=== PATIENT | female | born 1975 | race Two or more races ===

== ENCOUNTER 2017-08-19 11:12 | Inpatient (IN) | payer MEDICAID ==
[~2017-08-19] VITALS: Ht 162.6 cm; Wt 80.1 kg
[2017-08-19] MEDS ORDERED: ACETAMINOPHEN 325 MG TAB PO ONE (11:30)
[2017-08-19 12:11] LABS: Urine Bacteria NONE SEEN /hpf (None Seen); Urine Blood 2+ /uL (Negative); Urine Specific Gravity 1.025 (1.001-1.035); Urine WBC 10 /hpf (0 - 5)
[2017-08-19 13:00] LABS: Basophils # (auto) 0.1 uL; Basophils % (auto) 0.4 % (0.0-2.0); Eosinophils # (auto) 0 uL; Hematocrit 39.7 % (36.0-46.0); Lymphocytes # (auto) 0.7 uL; Lymphocytes % (auto) 3.8 % (10.0-50.0); Mean Corpuscular Hemoglobin 27.8 pg (28.0-32.0); Mean Corpuscular Hgb Conc. 32.8 g/dL (32.0-36.0); Mean Corpuscular Volume 84.8 fL (80.0-100.0); Monocytes # (auto) 1.5 uL; Monocytes % (auto) 8.5 % (0.0-12.0); Neutrophils # (auto) 15.9 uL; Neutrophils % (auto) 87.3 % (37.0-80.0); Nucleated Red Blood Cells % 0.1 %; Red Blood Cells 4.68 10^6/uL (4.0-5.20); Red Cell Distribution Width 16.7 % (11.8-14.3); White Blood Cell 18.2 10^3/uL (4.4-10.8)
[2017-08-19 13:13] LABS: Platelet Count (auto) 137 10^3/uL (140-450)
[2017-08-19 13:32] LABS: Albumin 2.3 g/dL (3.4-5.0); BUN/Creatinine Ratio 10.8; Bilirubin, Total 1.2 mg/dL (0.2-1.0); Calcium 8.3 mg/dL (8.5-10.1); Magnesium 1.8 mg/dL (1.6-2.6); Potassium 3.3 mmol/L (3.5-5.1); Total Protein 6.2 g/dL (6.4-8.2)
[2017-08-19] MEDS ORDERED: metroNIDAZOLE 500MG/100ML 100 ML IV ONE (13:45)
[2017-08-19] MEDS ORDERED: LEVOFLOXACIN 500MG 100 ML IV ONE (14:15)
[2017-08-19] MEDS: D5W/SOD CHL 0.9%/KCL 40MEQ 1,000 ML IV SCH (14:15)
[2017-08-19] MEDS ORDERED: PANTOPRAZOLE 40 MG/10 ML VIAL IV ONE (14:15)
[2017-08-19] MEDS ORDERED: ONDANSETRON HCL 4 MG/2 ML VIAL IV PRN (14:15)
[2017-08-19 15:20] LABS: INR 1.07 (0.9-1.15); Partial Thromboplastin Time 37.3 sec (23.78-33.04); Prothrombin Time 11.4 sec (9.27-12.13)
[2017-08-19 15:28] VITALS: BP 105/62
[2017-08-19] MEDS: HYDROmorphone HCL 2 MG/ML VL IV PRN (15:39)
[2017-08-19 16:13] VITALS: BP 105/62
[2017-08-19 17:09] VITALS: BP 106/58
[2017-08-19] MEDS: HYDROcodone-ACET 5/325MG TAB PO PRN (21:11)
[2017-08-19] MEDS: metroNIDAZOLE 500MG/100ML 100 ML IV SCH (21:55)
[2017-08-19] MEDS: ACETAMINOPHEN 500 MG TAB PO PRN (21:56)
[2017-08-19 22:00] VITALS: BP 98/54
[2017-08-20 04:57] VITALS: BP 91/59
[2017-08-20] MEDS: D5W/SOD CHL 0.9%/KCL 40MEQ 1,000 ML IV SCH ×3 (06:03→20:15)
[2017-08-20] MEDS: metroNIDAZOLE 500MG/100ML 100 ML IV SCH ×3 (06:03→22:26)
[2017-08-20 06:05] LABS: Basophils # (auto) 0 uL; Basophils % (auto) 0.2 % (0.0-2.0); Eosinophils # (auto) 0 uL; Eosinophils % (auto) 0.2 % (0.0-7.0); Lymphocytes # (auto) 0.8 uL; Mean Corpuscular Hemoglobin 28.6 pg (28.0-32.0); Mean Corpuscular Hgb Conc. 33.4 g/dL (32.0-36.0); Mean Corpuscular Volume 85.6 fL (80.0-100.0); Monocytes # (auto) 1.4 uL; Monocytes % (auto) 11.8 % (0.0-12.0); Neutrophils # (auto) 9.5 uL; Neutrophils % (auto) 80.8 % (37.0-80.0); Platelet Count (auto) 127 10^3/uL (140-450); Red Cell Distribution Width 16.8 % (11.8-14.3); White Blood Cell 11.8 10^3/uL (4.4-10.8)
[2017-08-20 06:08] LABS: Partial Thromboplastin Time 36.2 sec (23.78-33.04); Prothrombin Time 10.7 sec (9.27-12.13)
[2017-08-20 06:17] LABS: Potassium 3.4 mmol/L (3.5-5.1)
[2017-08-20 06:23] LABS: Albumin 1.9 g/dL (3.4-5.0); BUN/Creatinine Ratio 12.1; Calcium 7.7 mg/dL (8.5-10.1)
[2017-08-20 06:27] LABS: Bilirubin, Total 0.8 mg/dL (0.2-1.0); Total Protein 5.6 g/dL (6.4-8.2)
[2017-08-20] MEDS: HYDROmorphone HCL 2 MG/ML VL IV PRN (07:53)
[2017-08-20 08:44] VITALS: BP 106/58
[2017-08-20] MEDS ORDERED: SUCCINYLCHOLINE CHLORIDE 20 MG/ML 10ML VIAL IV ONE (09:09)
[2017-08-20] MEDS: PANTOPRAZOLE 40 MG/10 ML VIAL IV SCH (09:10)
[2017-08-20] MEDS: LEVOFLOXACIN 500MG 100 ML IV SCH (09:11)
[2017-08-20] MEDS ORDERED: PROPOFOL 10 MG/ML 20 ML IV ONE (09:36)
[2017-08-20] MEDS ORDERED: LIDOCAINE HCL 100 MG/5ML (2%) SYRG INJ IV ONE (09:36)
[2017-08-20] MEDS ORDERED: MIDAZOLAM HCL 1MG/1ML-2 ML VIAL ONE (09:36)
[2017-08-20] MEDS ORDERED: POVIDONE IODINE 10 % TOPICAL OINT 30GM TOP ONE (10:28)
[2017-08-20] MEDS ORDERED: ceFAZolin 1GM VL ONE (10:32)
[2017-08-20] MEDS ORDERED: METOCLOPRAMIDE HCL 5MG/ml INJ 2ml VIAL ONE (10:51)
[2017-08-20] MEDS ORDERED: ONDANSETRON HCL 4 MG/2 ML VIAL ONE (10:52)
[2017-08-20] MEDS ORDERED: fentaNYL CITRATE 100 MCG/2 ML VL ONE (10:59)
[2017-08-20] MEDS ORDERED: ONDANSETRON HCL 4 MG/2 ML VIAL IV ONE (11:00)
[2017-08-20] MEDS ORDERED: MORPHINE SULFATE 8mg/ml INJ SDV IV PRN (11:00)
[2017-08-20] MEDS ORDERED: NALOXONE HCL 0.4 MG/ML VIAL IV PRN (11:00)
[2017-08-20] MEDS ORDERED: KETOROLAC TROMETH 30 MG/ML 1ML VIAL ONE (11:12)
[2017-08-20] MEDS ORDERED: NEOSTIGMINE 1 MG/ML INJ (10mg/10ML VIAL) ONE (11:22)
[2017-08-20] MEDS ORDERED: GLYCOPYRROLATE 0.2 MG/ML 1ML VIAL ONE (11:22)
[2017-08-20 12:30] VITALS: BP 92/53
[2017-08-20 16:40] VITALS: BP 93/52
[2017-08-20] MEDS: HYDROcodone-ACET 5/325MG TAB PO PRN (20:18)
[2017-08-20 22:00] VITALS: BP 112/57
[2017-08-20] MEDS: ACETAMINOPHEN 500 MG TAB PO PRN (22:31)
[2017-08-21] MEDS: D5W/SOD CHL 0.9%/KCL 40MEQ 1,000 ML IV SCH ×2 (03:56→16:15)
[2017-08-21] MEDS: metroNIDAZOLE 500MG/100ML 100 ML IV SCH ×2 (05:14→11:08)
[2017-08-21 05:30] VITALS: BP 128/77
[2017-08-21 07:34] LABS: Basophils # (auto) 0 uL; Basophils % (auto) 0.4 % (0.0-2.0); Eosinophils # (auto) 0 uL; Eosinophils % (auto) 0.5 % (0.0-7.0); Hematocrit 33.9 % (36.0-46.0); Hemoglobin 11.4 g/dL (12.2-16.2); Lymphocytes # (auto) 1.1 uL; Lymphocytes % (auto) 14.1 % (10.0-50.0); Mean Corpuscular Hemoglobin 28.5 pg (28.0-32.0); Mean Corpuscular Hgb Conc. 33.6 g/dL (32.0-36.0); Mean Corpuscular Volume 84.9 fL (80.0-100.0); Monocytes # (auto) 0.8 uL; Monocytes % (auto) 10.7 % (0.0-12.0); Neutrophils # (auto) 5.5 uL; Neutrophils % (auto) 74.3 % (37.0-80.0); Platelet Count (auto) 159 10^3/uL (140-450); Red Cell Distribution Width 17.1 % (11.8-14.3); White Blood Cell 7.4 10^3/uL (4.4-10.8)
[2017-08-21 07:54] LABS: Albumin 1.7 g/dL (3.4-5.0); BUN/Creatinine Ratio 10.3; Bilirubin, Total 0.5 mg/dL (0.2-1.0); Calcium 7.7 mg/dL (8.5-10.1); Potassium 3.7 mmol/L (3.5-5.1)
[2017-08-21 09:10] VITALS: BP 115/54
[2017-08-21] MEDS: PANTOPRAZOLE 40 MG/10 ML VIAL IV SCH (10:00)
[2017-08-21] MEDS: LEVOFLOXACIN 500MG 100 ML IV SCH (10:00)
[2017-08-21] MEDS ORDERED: LEVOFLOXACIN 500 MG TAB PO ONE (11:15)
[2017-08-21 13:31] VITALS: BP 115/67
[2017-08-21] MEDS ORDERED: metroNIDAZOLE 500 MG TAB PO SCH (14:00)
[2017-08-21] MEDS: ACETAMINOPHEN 500 MG TAB PO PRN (15:24)
[2017-08-21 16:16] VITALS: BP 109/63
[2017-08-21 17:23] VITALS: BP 119/63
== END 2017-08-21 19:30 | disposition home or self-care (01) | DRG 710 ==
LOC: ER 11:12 → EDBD 11:12 → EDUNIT# 11:12 → OVERFLOW 11:13 → CENTRAL 15:20
PROVIDERS: ADMIT Internal Medicine; ATTEND Internal Medicine
PROC: 0FT44ZZ Resection of Gallbladder, Percutaneous Endoscopic Approach (ICD-10-PCS; principal; 2017-08-20 10:45)
DX: A41.9 Sepsis, unspecified organism (principal); K80.00 Calculus of gallbladder with acute cholecystitis without obstruction; E86.0 Dehydration; R79.89 Other specified abnormal findings of blood chemistry; F17.210 Nicotine dependence, cigarettes, uncomplicated; K21.9 Gastro-esophageal reflux disease without esophagitis; Z98.51 Tubal ligation status; E44.1 Mild protein-calorie malnutrition; Z68.30 Body mass index [BMI] 30.0-30.9, adult
CPT/HCPCS: 36415; 76705; 80053; 81001; 81025; 82150; 82247; 83690; 83735; 85025; 85610; 85730; 86850; 86900; 86901; 87040; 94761; 96374; 96375; C9113; J0330; J0690; J1885; J1956; J2250; J2405; J2704; J3490